=== PATIENT | female | born 1970 | race American Indian/Alaskan Native ===

== ENCOUNTER 2017-02-28 20:41 | Inpatient (IN) | payer OTHER ==
[2017-02-28 21:27] LABS: Bilirubin,Urine NEG (Negative); Blood,Urine SM (Negative); Ketones,Urine 20 mg/dL (Negative); Leukocyte Esterase,Urine NEG (Negative); Mucus,Urine 3+ /HPF; Nitrite,Urine NEG (Negative); Urobilinogen,Urine < 2.0 mg/dL (<2.0)
[2017-02-28 21:32] LABS: Basophils % (Auto) 0.5 % (0.0-1.8); Hematocrit 43.4 % (30.3-42.9); Hemoglobin 14.3 gm/dl (10.1-14.3); Mean Corpuscular HGB Conc 33 % (30-34); Mean Corpuscular Hemoglobin 29 pg (28-32); Mean Corpuscular Volume 86 fl (79-97); Platelet Count 178 K/mm3 (140-440); Red Blood Count 5.04 M/mm3 (3.65-5.03); Red Cell Distribution Width 16.1 % (13.2-15.2); White Blood Count 4.6 K/mm3 (4.5-11.0)
[2017-02-28 21:36] LABS: Anion Gap 19 mmol/L; Blood Urea Nitrogen 9 mg/dL (7-17); Calcium 9.4 mg/dL (8.4-10.2); Carbon Dioxide 22 mmol/L (22-30); Chloride 100.2 mmol/L (98-107); Glucose 131 mg/dL (65-100); Potassium 3.9 mmol/L (3.6-5.0); Sodium 137 mmol/L (137-145)
[2017-03-01] MEDS ORDERED: ZOFRAN IV ONE (00:03)
[2017-03-01] MEDS ORDERED: MORPHINE IV ONE (00:03)
[2017-03-01] MEDS ORDERED: ASPIRIN PO ONE (00:03)
--- NOTE | 2017-03-01 00:09 | Emergency Department Report ---
HPI - General Chief Complaint: Chest Pain Time Seen by Provider: 02/28/17 23:49 - HPI HPI: Room 4 The patient is a 46-year-old female presenting with chief complaint of chest pain. The patient states she has had chronic pain in the right upper extremity for roccellin 5 months. The patient states 1 month ago she developed pain in the left arm. The patient states she didn't develop pain throughout her entire body. The patient states the pain is constant and even her skin hurts. Patient states tonight she developed substernal chest pain described as a "hurt " in nature associated with spasm. Patient admits to slight shortness of breath nausea/vomiting but denies diaphoresis. Patient states reddish stress test or cardiac catheterization. States that time she has palpitations but not currently. Patient also states she has lost her appetite and has suffered from insomnia Location: [see above] Duration: [see above] Quality: "Hurt" Severity: Moderate Modifying factors: [see above] Context: [see above] Mode of transportation: [not driving] ED Past Medical Hx - Past Medical History Hx Hypertension: Yes Hx Psychiatric Treatment: Yes (anxiety) Hx Asthma: Yes Additional medical history: bursitis, - Surgical History Additional Surgical History: LLE fx r/t trauma - Family History Family history: no significant - Social History Smoking Status: Current Every Day Smoker Substance Use Type: Alcohol (occasional), Marijuana ED Review of Systems ROS: Stated complaint: CHEST PAIN/SOB/VOMITING/LOSS OF APPETITE Other details as noted in HPI Comment: All other systems reviewed and negative Constitutional: denies: diaphoresis Eyes: denies: eye pain, eye discharge, vision change ENT: denies: ear pain, throat pain Respiratory: shortness of breath Cardiovascular: chest pain, palpitations Endocrine: no symptoms reported Gastrointestinal: nausea. denies: abdominal pain, vomiting, diarrhea Genitourinary: denies: urgency, dysuria, discharge Musculoskeletal: myalgia Skin: denies: rash, lesions Neurological: denies: headache, weakness, paresthesias Psychiatric: denies: anxiety, depression Hematological/Lymphatic: denies: easy bleeding, easy bruising Physical Exam - Physical Exam Vital Signs: Vital Signs 02/28/17 02/28/17 20:50 23:45 Temperature 98.8 F Pulse Rate 68 Respiratory 18 20 Rate Blood Pressure 135/101 O2 Sat by Pulse 100 99 Oximetry Physical Exam: GENERAL: The patient is well-developed well-nourished female lying on stretcher sleeping not appear to be in acute distress. [] HEENT: Normocephalic. Atraumatic. Extraocular motions are intact. Patient has moist mucous membranes. NECK: Supple. Trachea Midline CHEST/LUNGS: Clear to auscultation. There is no respiratory distress noted. HEART/CARDIOVASCULAR: Regular. There is no tachycardia. There is no gallop rub or murmur. ABDOMEN: Abdomen is soft, nontender. Patient has normal bowel sounds. There is no abdominal distention. SKIN: There is no rash. There is no edema. There is no diaphoresis. NEURO: The patient is awake, alert, and oriented. The patient is cooperative. The patient has normal speech MUSCULOSKELETAL:There is no evidence of acute injury. ED Course Vital Signs 02/28/17 02/28/17 20:50 23:45 Temperature 98.8 F Pulse Rate 68 Respiratory 18 20 Rate Blood Pressure 135/101 O2 Sat by Pulse 100 99 Oximetry ED Medical Decision Making - Lab Data Result diagrams: 02/28/17 21:06 02/28/17 21:06 Laboratory Tests 02/28/17 02/28/17 02/28/17 21:06 21:06 21:15 WBC 4.6 RBC 5.04 H Hgb 14.3 Hct 43.4 H MCV 86 MCH 29 MCHC 33 RDW 16.1 H Plt Count 178 Lymph % (Auto) 38.1 H Garrett % (Auto) 14.0 H Eos % (Auto) 2.0 Baso % (Auto) 0.5 Lymph # 1.8 Garrett # 0.6 Eos # 0.1 Baso # 0.0 Seg Neutrophils % 45.4 Seg Neutrophils # 2.1 Sodium 137 Potassium 3.9 Chloride 100.2 Carbon Dioxide 22 Anion Gap 19 BUN 9 Creatinine 0.6 L Estimated GFR > 60 BUN/Creatinine Ratio 15.00 Glucose 131 H Calcium 9.4 Total Creatine Kinase CK-MB (CK-2) CK-MB (CK-2) Rel Index Troponin T < 0.010 Urine Color Adrianna Urine Turbidity Clear Urine pH 5.0 Ur Specific Mary Esther 1.028 Urine Protein 30 mg/dl Urine Glucose (UA) Neg Urine Ketones 20 Urine Blood Sm Urine Nitrite Neg Urine Bilirubin Neg Urine Urobilinogen < 2.0 Ur Leukocyte Esterase Neg Urine WBC (Auto) 1.0 Urine RBC (Auto) 9.0 U Epithel Cells (Auto) 15.0 H Urine Mucus 3+ Urine HCG, Qual Negative 03/01/17 00:02 WBC RBC Hgb Hct MCV MCH MCHC RDW Plt Count Lymph % (Auto) Garrett % (Auto) Eos % (Auto) Baso % (Auto) Lymph # Garrett # Eos # Baso # Seg Neutrophils % Seg Neutrophils # Sodium Potassium Chloride Carbon Dioxide Anion Gap BUN Creatinine Estimated GFR BUN/Creatinine Ratio Glucose Calcium Total Creatine Kinase 108 CK-MB (CK-2) 1.5 CK-MB (CK-2) Rel Index 1.3 Troponin T Urine Color Urine Turbidity Urine pH Ur Specific Mary Esther Urine Protein Urine Glucose (UA) Urine Ketones Urine Blood Urine Nitrite Urine Bilirubin Urine Urobilinogen Ur Leukocyte Esterase Urine WBC (Auto) Urine RBC (Auto) U Epithel Cells (Auto) Urine Mucus Urine HCG, Qual - EKG Data -: EKG Interpreted by Me EKG shows normal: sinus rhythm Rate: normal - EKG Data When compared to previous EKG there are: previous EKG unavailable Interpretation: nonspecific ST-T wave nancy (T-wave inversion in lead 3 and V2) - Radiology Data Radiology results: image reviewed (cxr) interpreted by me: Chest x-ray-no focal infiltrates, no pneumothorax - Differential Diagnosis fibromyalgia, anxiety, ACS, dysrhythmia Critical care attestation.: If time is entered above; I have spent that time in minutes in the direct care of this critically ill patient, excluding procedure time. ED Disposition Clinical Impression: Chest pain, Total body pain Disposition: OP ADMITTED IP TO THIS HOSP Is pt being admited?: Yes Does the pt Need Aspirin: Yes Condition: Fair Instructions: Chest Pain (ED) Referrals: PRIMARY CARE, [Primary Care Provider] - 3-5 Days Time of Disposition: 00:44 (hospitalist paged)
[2017-03-01 00:22] LABS: Creatine Kinase MB 1.5 ng/mL (0.0-4.0)
[2017-03-01] MEDS: LOPRESSOR PO SCH ×3 (02:25→22:13)
[2017-03-01] MEDS: AMBIEN PO PRN (02:25)
[2017-03-01] MEDS: MORPHINE IV PRN ×2 (02:25→06:00)
[2017-03-01] MEDS ORDERED: MILK OF MAGNESIA PO PRN (06:34)
[2017-03-01] MEDS ORDERED: TYLENOL PO PRN (06:34)
[2017-03-01] MEDS ORDERED: DULCOLAX PR PRN (06:34)
[2017-03-01] MEDS ORDERED: ZOFRAN IV PRN (06:34)
[2017-03-01] MEDS ORDERED: SODIUM CHLORIDE FLUSH SYRINGE 10 ML IV PRN (06:36)
--- NOTE | 2017-03-01 06:38 | Event Note ---
Date: 03/01/17 See H/p in reports Chest pain r/o MD protocol HTN Nicotine dependence
[2017-03-01 07:51] LABS: Creatine Kinase MB 1.3 ng/mL (0.0-4.0)
[2017-03-01 07:55] LABS: Creatine Kinase 92 units/L (30-135)
[2017-03-01] MEDS ORDERED: LEXISCAN IV ONE ×2 (08:05→08:16)
--- NOTE | 2017-03-01 08:42 | History and Physical Report ---
CHIEF COMPLAINT: Retrosternal chest pain for 1 week. HISTORY OF PRESENT ILLNESS: A 46-year-old -Greek female with history of hypertension, anxiety disorder, and asthma, comes in for intermittent chest pain of 1-week duration. The pain is dull to sharp and about 6 on a scale of 1-10. No relation to exertion. No exacerbating or relieving factors. No diaphoresis. No palpitations. The patient also has a right arm pain for the last 6 months. One month ago, the patient noted pain in the left arm too. No cardiac risk factors. PAST MEDICAL HISTORY: As mentioned, hypertension; anxiety disorder; asthma; and bursitis. PAST SURGICAL HISTORY: Left lower extremity fracture and repair. FAMILY HISTORY: Hypertension. SOCIAL HISTORY: Smokes about a pack a day. Has stopped before, resumed 6 months ago. Has been stopping and starting it for the last 25 years. REVIEW OF SYSTEMS: CONSTITUTIONAL: No fever, no chills. No weight loss, weight gain. HEENT: Unremarkable. No sore throat, no postnasal drip. CARDIOVASCULAR AND RESPIRATORY: As mentioned, chest pain, intermittent in nature. Slight shortness of breath present. No cough. No wheezing. GASTROINTESTINAL: No nausea, no vomiting, no diarrhea. GENITOURINARY: No dysuria, no flank pain. MUSCULOSKELETAL: Has pain all over, especially both upper extremities. CENTRAL NERVOUS SYSTEM: No syncope, no seizures. SKIN: No rashes. HEMATOLOGIC AND LYMPHATIC: No easy bruising. No lymphadenopathy. PSYCHIATRIC: Has anxiety disorder. A 14-point review of systems done. PHYSICAL EXAMINATION: GENERAL: Middle-aged female, cooperative during examination. VITAL SIGNS: Blood pressure is 131/84, temperature is 97.6, pulse is 65, respirations are 18. HEENT: Unremarkable. Pupils equal and reactive. NECK: Supple, no lymphadenopathy, no thyromegaly. LUNGS: Clear to auscultation and percussion. Good air entry. CARDIOVASCULAR: S1, S2 heard. No gallop, no murmur, no rub. Apical impulse in left fifth intercostal space and midclavicular line. ABDOMEN: Soft and benign. No hepatosplenomegaly. No guarding, no rigidity. Hernial orifices are normal. EXTREMITIES: Good pedal pulses. No pedal edema. CENTRAL NERVOUS SYSTEM: Alert and oriented x 4. Nonfocal exam. SKIN: Normal. LABORATORY DATA: White count is 4,600, H and H is 14.3 and 43.4, platelet count is 178,000. Electrolytes are normal. Glucose is 131. First CK is normal. Troponin is less than 0.010, 3 times. Urine shows epithelial cells. EKG shows nonspecific ST-T wave changes. T-wave inversions in V2 and V3. Chest x-ray normal. ASSESSMENT AND PLAN: 1. Chest pain, rule out myocardial infarction, chest pain protocol. The patient to get Lexiscan in the morning. Also, cardiac enzymes x 3. 2. Hypertension. The patient is on metoprolol. 3. Asthma, bronchodilator as necessary. 4. Bilateral upper extremity pain, probably secondary to a pinched nerve in the cervical region. The patient needs to follow up as outpatient. 5. Deep venous thrombosis prophylaxis, Lovenox 40 mg subcutaneous daily. JOB# [id number] VSTaiwo/NTS
--- NOTE | 2017-03-01 10:14 | XRay Report ---
AP CHEST : 03/01/17 CLINICAL: Chest pain. COMPARISON:None FINDINGS: Normal heart and pulmonary vessels. The lungs are normally expanded and clear. The bones and soft tissues are unremarkable. IMPRESSION: Normal chest.
--- NOTE | 2017-03-01 10:22 | Progress Note ---
Assessment and Plan Assessment and plan: Patient is a 46-year-old woman history of hypertension, menopause, anxiety disorder and tobacco dependency who presents with chest pains. -Chest pain most likely costochondritis -Tobacco dependency: Counseling on stopping -Hypertension, accelerated History Interval history: Patient seen and examined. Follow up on chest pain which has resolved. Overnight uneventful. No cp, sob, n/v or severe headaches. Imaging, old records , testing, labs, nursing notes reviewed. Hospitalist Physical - Physical exam Narrative exam: GEN: WDWN, NAD, AWAKE, ALERT, ORIENTATED 3 HEENT: NCAT, PERRL, EOMI, OP CLEAR NECK: SUPPLE, NO THYROMEGALY, NO JVD, NO LAD CVS: RRR, NORMAL S1S2 LUNGS/CHEST: CTA B, NORMAL CHEST EXPANSION B, GOOD AIR ENTRY B, bilateral upper chest chest wall reproducible tenderness ABD: SOFT NTND, GBS, NO REBOUND OR GUARDING EXT/SKIN: NO SIGNIFICANT EDEMA OR RASH MSK: FROM X 4 EXTREMITIES NEURO: CN 2-12 GROSSLY INTACT, NO new FOCAL DEFICITS PSY: CALM - Constitutional Vitals: Temp Pulse Resp BP Pulse Ox 97.6 F 84 16 141/89 96 03/01/17 08:55 03/01/17 09:46 03/01/17 08:55 03/01/17 09:46 03/01/17 08:55 Results - Labs CBC & Chem 7: 02/28/17 21:06 02/28/17 21:06 Labs: Laboratory Last Values WBC 4.6 K/mm3 (4.5-11.0) 02/28/17 21:06 RBC 5.04 M/mm3 (3.65-5.03) H 02/28/17 21:06 Hgb 14.3 gm/dl (10.1-14.3) 02/28/17 21:06 Hct 43.4 % (30.3-42.9) H 02/28/17 21:06 MCV 86 fl (79-97) 02/28/17 21:06 MCH 29 pg (28-32) 02/28/17 21:06 MCHC 33 % (30-34) 02/28/17 21:06 RDW 16.1 % (13.2-15.2) H 02/28/17 21:06 Plt Count 178 K/mm3 (140-440) 02/28/17 21:06 Lymph % (Auto) 38.1 % (13.4-35.0) H 02/28/17 21:06 Duchesne % (Auto) 14.0 % (0.0-7.3) H 02/28/17 21:06 Eos % (Auto) 2.0 % (0.0-4.3) 02/28/17 21:06 Baso % (Auto) 0.5 % (0.0-1.8) 02/28/17 21:06 Lymph # 1.8 K/mm3 (1.2-5.4) 02/28/17 21:06 Duchesne # 0.6 K/mm3 (0.0-0.8) 02/28/17 21:06 Eos # 0.1 K/mm3 (0.0-0.4) 02/28/17 21:06 Baso # 0.0 K/mm3 (0.0-0.1) 02/28/17 21:06 Seg Neutrophils % 45.4 % (40.0-70.0) 02/28/17 21:06 Seg Neutrophils # 2.1 K/mm3 (1.8-7.7) 02/28/17 21:06 Sodium 137 mmol/L (137-145) 02/28/17 21:06 Potassium 3.9 mmol/L (3.6-5.0) 02/28/17 21:06 Chloride 100.2 mmol/L (98-107) 02/28/17 21:06 Carbon Dioxide 22 mmol/L (22-30) 02/28/17 21:06 Anion Gap 19 mmol/L 02/28/17 21:06 BUN 9 mg/dL (7-17) 02/28/17 21:06 Creatinine 0.6 mg/dL (0.7-1.2) L 02/28/17 21:06 Estimated GFR > 60 ml/min 02/28/17 21:06 BUN/Creatinine Ratio 15.00 % 02/28/17 21:06 Glucose 131 mg/dL (65-100) H 02/28/17 21:06 Calcium 9.4 mg/dL (8.4-10.2) 02/28/17 21:06 Total Creatine Kinase 92 units/L (30-135) 03/01/17 06:46 CK-MB (CK-2) 1.3 ng/mL (0.0-4.0) 03/01/17 06:46 CK-MB (CK-2) Rel Index 1.4 (0-4) 03/01/17 06:46 Troponin T < 0.010 ng/mL (0.00-0.029) 03/01/17 Unknown Urine Color Adrianna (Yellow) 02/28/17 21:15 Urine Turbidity Clear (Clear) 02/28/17 21:15 Urine pH 5.0 (5.0-7.0) 02/28/17 21:15 Ur Specific Hurst 1.028 (1.003-1.030) 02/28/17 21:15 Urine Protein 30 mg/dl mg/dL (Negative) 02/28/17 21:15 Urine Glucose (UA) Neg mg/dL (Negative) 02/28/17 21:15 Urine Ketones 20 mg/dL (Negative) 02/28/17 21:15 Urine Blood Sm (Negative) 02/28/17 21:15 Urine Nitrite Neg (Negative) 02/28/17 21:15 Urine Bilirubin Neg (Negative) 02/28/17 21:15 Urine Urobilinogen < 2.0 mg/dL (<2.0) 02/28/17 21:15 Ur Leukocyte Esterase Neg (Negative) 02/28/17 21:15 Urine WBC (Auto) 1.0 /HPF (0.0-6.0) 02/28/17 21:15 Urine RBC (Auto) 9.0 /HPF (0.0-6.0) 02/28/17 21:15 U Epithel Cells (Auto) 15.0 /HPF (0-13.0) H 02/28/17 21:15 Urine Mucus 3+ /HPF 02/28/17 21:15 Urine HCG, Qual Negative (Negative) 02/28/17 21:15
--- NOTE | 2017-03-01 10:24 | Discharge Summary ---
Providers - Providers Date of Admission: 03/01/17 00:45 Date of discharge: 03/01/17 Attending physician: WES KNOX 03/01/17 Consult to Cardiac Rehabilitation [CONS] Routine Reason For Exam: Phase I Primary care physician: RISK ANALYST Hospitalization Condition: Stable Hospital course: Patient is a 46-year-old woman with a history of migraines, gastritis, hypertension, menopause, anxiety disorder and tobacco dependency who presents with chest pains. -Chest pain most likely GERD, gastritis and costochondritis -Tobacco dependency: Counseling on stopping -Hypertension, accelerated: Counseling on compliance, gave her the phone number for primary care doctor at [facility] -False positive stress test with neg Cardiac cath -Narcotic drug seeker, She asked me for pain medications and I told her that I will not give her narcotics. She states her main pains are migraines with she uses Excedrin but that causes gastritis. I informed her to take Nexium or protonix. Disposition: DISCHARGED TO HOME OR SELFCARE Time spent for discharge: 32 minutes Core Measure Documentation - Palliative Care Palliative Care/ Comfort Measures: Not Applicable - Core Measures Any of the following diagnoses?: none - VTE Discharge Requirements Deep Vein Thrombosis/Pulmonary Embolism Present on Admission: No Has pt received <5 days of overlap therapy or INR<2.0: No Anticoagulant overlap therapy prescribed at discharge: No Contraindication No Overlap Therapy order at DC: Not Indicated Exam - Physical Exam Narrative exam: GEN: WDWN, NAD, AWAKE, ALERT, ORIENTATED 3 HEENT: NCAT, PERRL, EOMI, OP CLEAR NECK: SUPPLE, NO THYROMEGALY, NO JVD, NO LAD CVS: RRR, NORMAL S1S2 LUNGS/CHEST: CTA B, NORMAL CHEST EXPANSION B, GOOD AIR ENTRY B, bilateral upper chest chest wall reproducible tenderness ABD: SOFT NTND, GBS, NO REBOUND OR GUARDING EXT/SKIN: NO SIGNIFICANT EDEMA OR RASH MSK: FROM X 4 EXTREMITIES NEURO: CN 2-12 GROSSLY INTACT, NO new FOCAL DEFICITS PSY: CALM - Constitutional Vitals: Temp Pulse Resp BP Pulse Ox 97.6 F 84 16 141/89 96 03/01/17 08:55 03/01/17 09:46 03/01/17 08:55 03/01/17 09:46 03/01/17 08:55 Plan Activity: advance as tolerated (no strenous activites until cleared by PCP. ) Diet: low salt Follow up with: PRIMARY CARE, [Primary Care Provider] - 3-5 Days KOLTON HDZ MD [Staff Physician] - 03/11/17 1:30 pm Forms: Work/School Release Form Prescriptions: Ibuprofen [Motrin 800 MG tab] 800 mg PO DAILY PRN #5 tablet PRN Reason: Pain , Severe (7-10) Metoprolol [Lopressor TAB] 50 mg PO BID #60 tablet Pantoprazole [Protonix] 40 mg PO QDAY #30 tablet
[2017-03-01] MEDS: DILAUDID IV PRN ×3 (10:37→20:44)
[2017-03-01 11:30] LABS: Creatine Kinase 90 units/L (30-135); Creatine Kinase MB 1.3 ng/mL (0.0-4.0)
[2017-03-01] MEDS: LOVENOX SUB-Q SCH (11:49)
[2017-03-01] MEDS: PEPCID PO SCH ×2 (11:51→22:12)
[2017-03-01] MEDS ORDERED: PROVENTIL IH PRN (12:35)
[2017-03-01] MEDS ORDERED: NACL 0.9% 500 ML 500 ML IV SCH (13:00)
[2017-03-02] MEDS: AMBIEN PO PRN
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
[2017-03-02] MEDS: DILAUDID IV PRN ×4 (03:50→09:46)
[2017-03-02 06:36] LABS: Hematocrit 40.4 % (30.3-42.9); Hemoglobin 13.3 gm/dl (10.1-14.3); Mean Corpuscular HGB Conc 33 % (30-34); Mean Corpuscular Hemoglobin 28 pg (28-32); Mean Corpuscular Volume 86 fl (79-97); Platelet Count 147 K/mm3 (140-440); White Blood Count 4.5 K/mm3 (4.5-11.0)
[2017-03-02 06:50] LABS: Alanine Aminotransferase 15 units/L (7-56); Albumin 3.9 g/dL (3.9-5); Albumin/Globulin Ratio 1.5 %; Alkaline Phosphatase 62 units/L (35-129); Anion Gap 16 mmol/L; BUN/Creatinine Ratio 12.85; Blood Urea Nitrogen 9 mg/dL (7-17); Carbon Dioxide 27 mmol/L (22-30); Chloride 100.5 mmol/L (98-107); Glucose 90 mg/dL (65-100); Potassium 4.4 mmol/L (3.6-5.0); Sodium 139 mmol/L (137-145); Total Protein 6.5 g/dL (6.3-8.2)
[2017-03-02 07:20] LABS: INR 1.05 (0.87-1.13)
[2017-03-02 07:21] LABS: Partial Thromboplastin Time 35.9 Sec. (24.2-36.6)
[2017-03-02] MEDS ORDERED: NACL 0.9% 500 ML 500 ML ONE (07:52)
[2017-03-02] MEDS ORDERED: HEPARIN/NS 5000 UNIT/500ML(CATH LAB) 1,000 ML IR ONE (08:05)
[2017-03-02] MEDS ORDERED: NITROGLYCERIN SYRINGE 3 ML ONE (08:06)
[2017-03-02] MEDS ORDERED: CALAN ONE (08:06)
[2017-03-02] MEDS ORDERED: HEPARIN 10,000 UNITS/10 ML ONE (08:06)
[2017-03-02] MEDS ORDERED: XYLOCAINE 2% INFILTRATI ONE (08:06)
[2017-03-02] MEDS ORDERED: VERSED ONE (08:07)
[2017-03-02] MEDS: SUBLIMAZE ONE ×2 (08:49→08:56)
--- NOTE | 2017-03-02 08:59 | Admit Criteria Form ---
Admission Criteria Documentation: CARDIOLOGY GRG Clinical Indications for Admission to Inpatient Care ( Place 'X' for any and all applicable criteria): Hospital admission is needed for appropriate care of the patient because of ANY ONE of the following (1): [ ] I. Hemodynamic instability as indicated by ALL of the following (1)(2)(3) (4)(5) [ ]a) Vital signs or other findings not as expected for chronic patient condition or baseline [ ]b) Instability indicated by ANY ONE of the following: [ ]i) Hypotension [ ]ii) Symptomatic Tachycardia unresponsive to treatment ( e.g., analgesia, fluids, sedation as indicated) [ ]iii) Inadequate perfusion indicated by ANY ONE of the following: [ ] 1) Lactic acidosis (> 2 mmol/L) [ ] 2) New abnormal capillary refill (> 3 seconds) [ ] 3) Reduced urine output [ ] 4) New altered mental status [ ]iv) Orthostatic vital sign changes unresponsive to treatment (e.g., fluids) [ ]v) IV inotropic or vasopressor medication required to maintain adequate blood pressure or perfusion [ ] II. Severe heart failure as indicated by ANY ONE of the following(17)(18) [ ]a) Respiratory distress [ ]b) Hypotension [ ]c) Anasarca (refractory to outpatient therapy) [ ]d) Cardiac arrhythmias of immediate concern [ ]e) Myocardial ischemia [ ] III. Cardiac arrhythmias or findings of immediate concern indicated by ANY ONE of the following (19)(20): [ ] a) Heart rhythms that are inherently dangerous or unstable indicated by ANY ONE of the following (21)(22)(23): [ ] i) Resuscitated ventricular fibrillation or cardiac arrest [ ] ii) Ventricular escape rhythm [ ] iii) Sustained ventricular tachycardia (30 seconds or more of ventricular rhythm at greater than 100 beats per minute) [ ] iv) Nonsustained ventricular tachycardia and ANY ONE of the following: [ ] 1) Suspected cardiac ischemia as cause or consequence of ventricular tachycardia [ ] 2) In setting of acute myocarditis [ ] b) Unstable cardiac conduction defects indicated by ANY ONE of the following(23)(24)(25) [ ] i) Type II second-degree atrioventricular block [ ]ii) Third-degree atrioventricular block [ ]iii) New-onset left bundle branch block with suspected myocardial ischemia [ ]c) Any heart rhythm and ANY ONE of the following (21)(22)(26)(27) (28) [ ] i) Continuous long-term ECG monitoring needed (e.g., initiation of drug requiring monitoring for more than 24 hours) [ ] ii) Patient has automatic implanted cardioverter defibrillator that is repeatedly firing, malfunctioning, or in need of immediate adjustment of settings beyond the scope of ambulatory or observation care [ ]d) Heart rhythms of concern due to ANY ONE of the following: [ ] i) Hypotension [ ] ii) Respiratory distress [ ] iii) Association with other significant symptoms (e.g., bradycardia with syncope or ongoing dizziness, supraventricular tachycardia with chest pain (14)(15)(17) [ ] IV. Monitoring for cardiac contusion beyond the scope of observation care needed [A](30)(31)(32) [ ] V. Surgical or device complication (e.g., valve replacement complication , pacemaker dysfunction) (35)(41)(44)(45)(46) [ ] . Inpatient palliative care needed. [B](49) Also use Inpatient Palliative Care Criteria [ ] VII. Nonbacterial thrombotic (marantic) endocarditis (36)(43)(47)(48) [X] VIII. Cardiology condition, symptom, or finding for which emergency and observation care has failed or are not considered appropriate. [ ] IX. Acute valvular disease requiring inpatient as indicated by ANY ONE of the following (41) [ ]a) Acute valvular regurgitation (42) [ ]b) Noninfectious valvulitis (43) [ ]c) Obstructive valve thrombosis [ ]d) Paravalvular leak [ ]e) Other significant valvular disorder remaining after emergency or observation level of care (as appropriate) [ ]X. Pericardial disease requiring inpatient treatment as indicated by ANY ONE of the following (33)(34)(35)(36)(37) [ ]a) Suspected tamponade (38)(39)(40) [ ]b) Hemopericardium [ ]c) Other significant pericardial disorder remaining after emergency or observation level of care (as appropriate) [ ] XI. Cardiac ischemia beyond scope of emergency and observation care. [ ] XII. Hypertension requiring inpatient treatment as indicated by ANY ONE of the following (6)(7)(8) [ ]a) SBP greater than 220 mm Hg or DBP greater than 120 mmHg despite treatment [ ]b) SBP greater than 140 mm Hg or DBP greater than 100 mm Hg with evidence of acute end organ damage as indicated by ANY ONE of the following [ ] i) Altered mental status [ ] ii) Acute renal failure as indicated by new onset of ANY ONE of the following (9)(10)(11)(12)(13) [ ]1) 3-fold rise in serum creatinine from baseline [ ]2) Serum creatinine greater than 4 mg/dL ( 354 micromoles/L) with acute rise greater than 0.5 mg/dL (44.2 micromoles/L) [ ]3) Reduction of more than 75% in estimated glomerular filtration rate from baseline [ ]4) Estimated glomerular filtration rate less than 35 mL/min/1.73m2 (0.59 mL/sec/1.73m2) in child up to 18 years of age [ ]5) Cessation of urine output indicated by ALL of the following [ ]A. Adequate volume status [ ]B. Inadequate urine output as indicated by ANY ONE of the following [ ]a. Urine output less than 0.3 mL/kg/hr for 24 hours [ ]b. Anuria (urine output less than 0.1 mL/kg/hr) for 12 hours [ ] iii) Aortic dissection [ ] iv) Myocardial Ischemia [ ] v) Left ventricular heart failure [ ]vi) Retinal Hemorrhage [ ]vii) Other significant finding [ ]c) Hypertension in child requiring inpatient treatment as indicated by ALL of the following(14)(15)(16) [ ] i) Outpatient treatment not effective, not available, or not appropriate [ ]ii) SBP or DBP greater than 95th percentile for age [ ]iii) Evidence of acute end organ damage as indicated by ANY ONE of the following [ ]1) Altered mental status [ ]2) Acute renal failure as indicated by new onset of ANY ONE of the following(9)(10)(11)(12)(13) [ ]A. 3-fold rise in serum creatinine from baseline [ ]B. Serum creatinine greater than 4 mg/dL (354 micromoles/L) with acute rise greater than 0.5 mg/dL (44.2 micromoles/L) [ ]C. Reduction of more than 75% in estimated glomerular filtration rate from baseline [ ]D. Estimated glomerular filtration rate less than 35 mL/min/1.73m2 (0.59 mL/sec/1.73m2) in child up to 18 years of age [ ]E. Cessation of urine output indicated by ALL of the following [ ]a. Adequate volume status [ ]b. Inadequate urine output as indicated by ANY ONE of the following [ ]i) Urine output less than 0.3 mL/kg/hr for 24 hours [ ]ii) Anuria ( urine output less than 0.1 mL/kg/hr) for 12 hours [ ]3) Severe headache [ ]4) Visual disturbance [ ]5) Retinal hemorrhage [ ]6) Other significant finding [ ]XIII. Complications of transplanted heart indicated by ANY ONE of the following(61): [ ]a) Acute graft rejection requiring inpatient management (eg, intravenous immunosuppression)(62)(63) [ ]b) Acute graft heart failure indicated by ANY ONE of the following(64): [ ]i) Hemodynamic instability [ ]ii) Cardiac arrhythmias of immediate concern [ ]iii) Pulmonary edema that is very severe (eg, mechanical ventilation needed, imminent or likely, need for 100% oxygen to keep oxygen saturation above 90%) [ ]iv) Pulmonary edema that is persistent as indicated by ALL of the following: [ ]1) New need for oxygen therapy to keep oxygen saturation above 90% (or increased FiO2 need from baseline) [ ]2) Has not improved sufficiently with emergency department or observation care IV diuretics or other heart failure treatments[E] [ ]v) Altered mental status that is severe or persistent [ ]vi) Increased creatinine (new on laboratory test) with reduction of more than 50% in estimated glomerular filtration rate from baseline [ ]vii) Progressively (ongoing) rising creatinine (known from past laboratory test) with reduction of more than 25% in estimated glomerular filtration rate from baseline [ ]viii) Acute renal failure [ ]ix) Acute peripheral ischemia (eg, examination shows pulseless, cool, mottled, or cyanotic extremity) [ ]x) Pulmonary artery catheter monitoring needed [ ]xi) Other sign or symptom of heart failure requiring inpatient treatment (ie, too severe or not responsive to outpatient and observation care treatment) [ ]c) Infection requiring inpatient management (eg, Hemodynamic instability, need for intravenous antimicrobial treatment)(66)(67)(68)(69)(70) [ ]d) Cardiac allograft vasculopathy requiring inpatient management ( eg evidence of cardiac ischemia)(71) [ ]e) Other complication of transplanted heart (eg, stroke, severe pulmonary hypertension, severe valvular dysfunction) requiring inpatient management(72) The original [facility] [employer] content created by [facility] [employer] has been revised. The portions of the content which have been revised are identified through the use of italic text or in bold, and [facility] has neither reviewed nor approved the modified material. All other unmodified content is copyright [facility] [employer]. Please see references footnoted in the original [facility] [employer] edition 2016 Admission Criteria Met: Yes
[2017-03-02] MEDS: LOVENOX SUB-Q SCH (09:34)
[2017-03-02] MEDS: LOPRESSOR PO SCH (09:46)
[2017-03-02] MEDS: PEPCID PO SCH (09:46)
--- NOTE | 2017-03-02 10:20 | Progress Note ---
Assessment and Plan Assessment: Chest pain, atypical - currently resolved; ECG with NAF; s/p LHC this AM which revealed normal coronaries. Abnormal stress test HTN Tobacco use - cessation encouraged Plan: s/p LHC which revealed normal coronaries. Currently stable cardiac status. Pt may discharge home following completion of post-cath order set. Follow up in our [place] office with Tara Ho NP, on 03/11/2017 @ 1:30PM. The patient has been seen in conjunction with Dr. Laura Adams who agrees with the assessment and plan of care. Subjective Date of service: 03/02/17 Principal diagnosis: chest pain Interval history: Pt resting comfortably, no complaints. VSS. Objective Last Vital Signs Temp 97.9 F 03/02/17 05:00 Pulse 61 03/02/17 05:00 Resp 18 03/02/17 06:55 BP 122/76 03/02/17 05:00 Pulse Ox 98 03/02/17 05:00 - Physical Examination General: Appears Well, No Apparent Distress HEENT: Positive: PERRL Neck: Positive: neck supple, trachea midline Cardiac: Positive: Reg Rate and Rhythm, S1/S2 Lungs: Positive: Normal Exam, clear to auscultation, Normal Breath Sounds Neuro: Positive: Grossly Intact, Cranial Nerve 2-12 Intact Abdomen: Positive: Unremarkable, Soft, Active Bowel Sounds. Negative: Tender Skin: Positive: Clear. Negative: Rash, Wound Musculoskeletal: No Fluid Collection, No Pain, Normal Range of Motion Extremities: Present: normal, upper extr. pulses, lower extr. pulses. Absent: edema - Labs and Meds Cardiac Enzymes 03/01/17 03/02/17 Range/Units 10:52 04:35 AST 14 (5-40) units/L CK-MB (CK-2) 1.3 (0.0-4.0) ng/mL Coagulation 03/02/17 Range/Units 04:35 PT 13.6 (12.2-14.9) Sec. INR 1.05 (0.87-1.13) APTT 35.9 (24.2-36.6) Sec. CBC 03/02/17 Range/Units 04:35 WBC 4.5 (4.5-11.0) K/mm3 RBC 4.70 (3.65-5.03) M/mm3 Hgb 13.3 (10.1-14.3) gm/dl Hct 40.4 (30.3-42.9) % Plt Count 147 (140-440) K/mm3 Comprehensive Metabolic Panel 03/02/17 Range/Units 04:35 Sodium 139 (137-145) mmol/L Potassium 4.4 (3.6-5.0) mmol/L Chloride 100.5 (98-107) mmol/L Carbon Dioxide 27 (22-30) mmol/L BUN 9 (7-17) mg/dL Creatinine 0.7 (0.7-1.2) mg/dL Glucose 90 (65-100) mg/dL Calcium 9.0 (8.4-10.2) mg/dL AST 14 (5-40) units/L ALT 15 (7-56) units/L Alkaline Phosphatase 62 (35-129) units/L Total Protein 6.5 (6.3-8.2) g/dL Albumin 3.9 (3.9-5) g/dL - Imaging and Cardiology EKG: report reviewed, image reviewed - Telemetry EKG Rhythm: Sinus Rhythm - EKG Sinus rhythms and dysrhythmias: sinus rhythm
[2017-03-02 11:12] LABS: Basophils % (Manual) 0 % (0.0-1.8); Blastocytes % (Manual) 0 %; Diff Status Complete; RBC Morphology Normal
[2017-03-02 11:39] VITALS: BP 129/78
--- NOTE | 2017-03-02 11:50 | Cardiac Catherization Report ---
CARDIAC CATHETERIZATION REFERRING PHYSICIAN: Obed Carrington MD INDICATION FOR PROCEDURE: The patient is a pleasant 46-year-old -[place] female with symptoms, which are mostly atypical, recurrent, with a mildly abnormal stress test, referred for left heart catheterization. Risks, benefits, and potential alternatives explained at length prior to obtaining informed consent. PROCEDURE IN DETAIL: The patient was brought to the catheterization lab in a postabsorptive state, prepped and draped in sterile fashion. Bharath's test in right hand was normal. A 2 mL of 2% lidocaine used to anesthetize the right wrist. A standard 6-[place] hydrophilic sheath used to cannulate the right radial artery via modified Seldinger technique. All exchanges performed to exchange a J-tip guidewire. JL3.5 catheter used to engage the left main. No dampening or ventricularization. Cineangiography performed in multiple projections. JR4 catheter used to cross the aortic valve under fluoroscopic guidance. Left ventriculography performed in 30 MACE and 30 KAZAKH projection via hand injections. Next, catheter flushed. Manual pullback performed with continuous pressure monitoring. Catheter used to engage the right coronary. No dampening or ventricularization. Cineangiography performed in all projections. Next, catheter removed from the body of wire, sheath removed. Manual pressure used to achieve hemostasis. DATA: The patient remained in normal sinus rhythm throughout the procedure. Aortic pressure is 140/80, LV pressure is 140, LVEDP of 10 mmHg. Left ventriculography mammary reveals normal systolic performance with estimated ejection fraction of 55-60%. No evidence of aortic stenosis. CORONARY ANATOMY: This is a codominant system. Right coronary is a moderate sized vessel, courses AV groove, distally bifurcates in the posterior and posterolateral branch, no discrete stenosis noted. Left main without significant disease, bifurcates in left anterior descending and left circumflex. LAD is a moderate sized vessel, courses anterior intergroove, wraps around the apex, no significant disease noted. The left circumflex is a moderate sized vessel, courses AV groove. No significant disease noted. CONCLUSIONS: 1. No angiographic evidence of significant epicardial coronary artery disease and is codominant system. 2. Normal left ventricular systolic performance with an estimated ejection fraction of 55-60%. 3. No evidence of aortic stenosis. 4. Normal LVEDP. RECOMMEND: Results of procedure explained in length to the patient and family. All questions and concerns were addressed. Recommend risk factor modification, medical therapy. There were no immediate complications identified. JOB# [id number] SBM/NTS
--- NOTE | 2017-03-02 15:19 | Discharge Summary ---
Providers - Providers Date of Admission: 03/01/17 00:45 Date of discharge: 03/02/17 Attending physician: WES KNOX 03/01/17 Consult to Cardiac Rehabilitation [CONS] Routine Reason For Exam: Phase I 03/01/17 11:38 Consult to Physician [CONS] Routine Consulting Provider: KOLTON HDZ Reason For Exam: chest pain, ?abn stress Place consult to:: Tova POWERS Notified:: yes Was contact made?: Yes Primary care physician: [employer] Hospitalization Condition: Stable Hospital course: see 03/01 discharge summary. Disposition: DISCHARGED TO HOME OR SELFCARE Time spent for discharge: 32 minutes Core Measure Documentation - Palliative Care Palliative Care/ Comfort Measures: Not Applicable - Core Measures Any of the following diagnoses?: none - VTE Discharge Requirements Deep Vein Thrombosis/Pulmonary Embolism Present on Admission: No Has pt received <5 days of overlap therapy or INR<2.0: No Anticoagulant overlap therapy prescribed at discharge: No Contraindication No Overlap Therapy order at DC: Not Indicated Exam - Physical Exam Narrative exam: GEN: WDWN, NAD, AWAKE, ALERT, ORIENTATED 3 HEENT: NCAT, PERRL, EOMI, OP CLEAR NECK: SUPPLE, NO THYROMEGALY, NO JVD, NO LAD CVS: RRR, NORMAL S1S2 LUNGS/CHEST: CTA B, NORMAL CHEST EXPANSION B, GOOD AIR ENTRY B, bilateral upper chest chest wall reproducible tenderness ABD: SOFT NTND, GBS, NO REBOUND OR GUARDING EXT/SKIN: NO SIGNIFICANT EDEMA OR RASH MSK: FROM X 4 EXTREMITIES NEURO: CN 2-12 GROSSLY INTACT, NO new FOCAL DEFICITS PSY: CALM - Constitutional Vitals: Temp Pulse Resp BP Pulse Ox 97.9 F 55 L 18 129/78 98 03/02/17 05:00 03/02/17 11:38 03/02/17 06:55 03/02/17 11:38 03/02/17 05:00 Plan Follow up with: [facility] [Provider Group] - 7 Days KOLTON HDZ MD [Staff Physician] - 03/11/17 1:30 pm PRIMARY MD DAYNA [Primary Care Provider] - 3-5 Days Forms: CardCath PCI D/C Instructions, Work/School Release Form Prescriptions: Ibuprofen [Motrin 800 MG tab] 800 mg PO DAILY PRN #5 tablet PRN Reason: Pain , Severe (7-10) Metoprolol [Lopressor TAB] 50 mg PO BID #60 tablet Pantoprazole [Protonix] 40 mg PO QDAY #30 tablet
== END 2017-03-02 15:38 | disposition home or self-care (01) | DRG 206 ==
LOC: ED 20:41 → 4A 03-01 00:45
PROVIDERS: ADMIT Internal Medicine; ATTEND Internal Medicine
PROC: 4A023N7 Measurement of Cardiac Sampling and Pressure, Left Heart, Percutaneous Approach (ICD-10-PCS; principal; 2017-03-02)
PROC: B2111ZZ Fluoroscopy of Multiple Coronary Arteries using Low Osmolar Contrast (ICD-10-PCS; 2017-03-02)
PROC: B2151ZZ Fluoroscopy of Left Heart using Low Osmolar Contrast (ICD-10-PCS; 2017-03-02)
DX: M94.0 Chondrocostal junction syndrome [Tietze] (principal); K21.9 Gastro-esophageal reflux disease without esophagitis; K29.70 Gastritis, unspecified, without bleeding; I10 Essential (primary) hypertension; F41.9 Anxiety disorder, unspecified; F17.210 Nicotine dependence, cigarettes, uncomplicated; J45.909 Unspecified asthma, uncomplicated; G43.909 Migraine, unspecified, not intractable, without status migrainosus; M79.602 Pain in left arm; M79.601 Pain in right arm; Z91.14 Patient's other noncompliance with medication regimen; Z72.89 Other problems related to lifestyle; Z71.6 Tobacco abuse counseling; Z82.49 Family history of ischemic heart disease and other diseases of the circulatory system
CPT/HCPCS: 36415; 71010; 78452; 80048; 80053; 81001; 81025; 82550; 82553; 82962; 84484; 85007; 85025; 85610; 85730; 93005; 93010; 93017; 93458; 94640; 96374; 96375; A9502; C1769; C1894; J1170; J1644; J1650; J2250; J2270; J2405; J2785; J3010; J7040; Q9967